=== PATIENT | male | born 1995 | race Caucasian/White ===

== ENCOUNTER 2018-04-18 12:32 | Inpatient (IN) | payer BC ==
[~2018-04-18] VITALS: Ht 172.7 cm; Wt 68.0 kg
[2018-04-18 12:34] VITALS: Ht 172.7 cm; Wt 68.0 kg
[2018-04-18 13:27] LABS: BASOPHIL % 0.7 % (0-2); PLATELET COUNT 149 x10^3mcL (130-400); RED CELL DISTRIBUTION WIDTH 13.4 % (11.5-14.5)
[2018-04-18 13:42] LABS: CALCIUM 8.1 mg/dL (8.5-10.1); CARBON DIOXIDE 29.7 mmol/L (21-32); CHLORIDE SERUM 101 mmol/L (98-107); CREATININE SERUM 0.9 mg/dL (0.7-1.3); GFR1 > 60 mL/min; GLUCOSE SERUM 95 mg/dL (74-106); SODIUM SERUM 139 mmol/L (136-145)
[2018-04-18 14:22] LABS: CHOLESTEROL/HDL RATIO 2.4; PHOSPHOROUS 3.9 mg/dL (2.5-4.9)
[2018-04-18 15:14] VITALS: BP 122/61
[2018-04-18 16:42] LABS: microscopic required? NO
[2018-04-18 16:50] LABS: urine erythrocyte NEGATIVE (NEGATIVE)
[2018-04-18 16:58] LABS: AMPHETAMINE QUAL UR NONE DETECTED (See below)
[2018-04-18 17:00] VITALS: BP 134/62
[2018-04-18 19:20] VITALS: BP 117/63
[2018-04-19 06:03] VITALS: BP 97/60
[2018-04-19 07:17] LABS: CALCIUM 8.4 mg/dL (8.5-10.1); CARBON DIOXIDE 26.2 mmol/L (21-32); CHLORIDE SERUM 107 mmol/L (98-107); CREATININE SERUM 0.9 mg/dL (0.7-1.3); GFR1 > 60 mL/min; GLUCOSE SERUM 73 mg/dL (74-106); MAGNESIUM 1.6 mg/dL (1.8-2.4); POTASSIUM SERUM 4.5 mmol/L (3.5-5.1); SODIUM SERUM 141 mmol/L (136-145)
[2018-04-19 07:22] LABS: BASOPHIL % 0.3 % (0-2); PLATELET COUNT 158 x10^3mcL (130-400); RED CELL DISTRIBUTION WIDTH 13.5 % (11.5-14.5)
[2018-04-19 09:29] VITALS: BP 109/59
[2018-04-19 12:42] VITALS: BP 105/65
[2018-04-19] MEDS ORDERED: FOL1 PO (13:37)
[2018-04-19] MEDS ORDERED: THERA-M CAPLET1 EACH PO (13:38)
[2018-04-19] MEDS ORDERED: THI100 PO (13:38)
[2018-04-19 13:41] VITALS: BP 105/65
== END 2018-04-19 14:41 | disposition home or self-care (01) | DRG 640 ==
LOC: ED 12:32 → DU 13:45
PROVIDERS: Emergency Medicine; Family Medicine
DX: E83.51 Hypocalcemia (principal); G92 Toxic encephalopathy; R55 Syncope and collapse; F10.129 Alcohol abuse with intoxication, unspecified; E87.6 Hypokalemia; S09.8XXA Other specified injuries of head, initial encounter; W22.01XA Walked into wall, initial encounter; Y93.89 Activity, other specified; Y92.89 Other specified places as the place of occurrence of the external cause; Y99.8 Other external cause status
CPT/HCPCS: G0480; J2405; J3480; J7030